=== PATIENT | male | born 1930 | race Caucasian/White ===

== ENCOUNTER 2017-05-01 10:47 | Inpatient (IN) | payer OTHER ==
[~2017-05-01] VITALS: Ht 175.3 cm; Wt 81.6 kg
[~2017-05-01 10:47] MED LIST: ATOR10TA69 PO; SOLI10TA PO; TAMS-11 PO
[2017-05-01] MEDS ORDERED: NITROGLYCERIN OINT 1GM/INCH UDPKT TD STA (11:15)
[2017-05-01] MEDS ORDERED: FUROSEMIDE 40MG/4ML VIAL IV STA (11:15)
[2017-05-01] MEDS ORDERED: ASPIRIN 81MG TABLET PO STA (11:15)
[2017-05-01 12:03] LABS: BASOPHILS % 0.4 % (0.0-2.0); EOSINOPHILS % 0.7 % (0.0-5.0); HEMATOCRIT. 34.8 % (42.0-52.0); HEMOGLOBIN. 11.7 g/dL (14.0-18.0); LYMPHOCYTES % 12.2 % (20.0-50.0); MEAN CORPUSCULAR HEMOGLOBIN 30.1 pg (28.0-32.0); MEAN CORPUSCULAR VOLUME 89.6 fL (80.0-94.0); MEAN PLATELET VOLUME 9.6 fl (7.4-10.4); MONOCYTES % 10.9 % (2.0-8.0); NEUTROPHILS % 75.8 % (40.0-76.0); PLATELET 142 x1000/uL (130-400); RED BLOOD CELL COUNT 3.88 mill/uL (4.7-6.1); RED CELL DISTRIBUTION WIDTH 14.9 % (11.6-14.6)
[2017-05-01 12:07] LABS: CLARITY URINE CLEAR (CLEAR); COLOR URINE YELLOW (YELLOW); GLUCOSE URINE NEGATIVE (NEGATIVE); KETONES URINE NEGATIVE (NEGATIVE); LEUKOCYTE ESTERASE URINE NEGATIVE (NEGATIVE); NITRITE URINE NEGATIVE (NEGATIVE); OCCULT BLOOD URINE TRACE (NEGATIVE); PH URINE 5.5 (4.5-8.0); PROTEIN URINE NEGATIVE (NEGATIVE); UROBILINOGEN URINE 0.2 E.U./dL (0.2-1.0)
[2017-05-01 12:10] LABS: INR 1.1; PARTIAL THROMBOPLASTIN TIME 29.4 sec (23.4-31.0); PROTHROMBIN TIME 11.7 sec (9.4-11.6)
[2017-05-01 12:11] LABS: CHLORIDE 94 mEq/L (98-107)
[2017-05-01 12:15] LABS: CARBON DIOXIDE 26 mEq/L (21-32)
[2017-05-01 12:19] LABS: TROPONIN I 0.05 ng/mL (0.00-0.04)
[2017-05-01] MEDS ORDERED: MORPHINE SULFATE 2 MG/ML CPJ (NOT FOR IM USE) IV PRN (15:45)
[2017-05-01] MEDS ORDERED: DOCUSATE SODIUM 100MG CAPSULE PO PRN (15:45)
[2017-05-01] MEDS ORDERED: ONDANSETRON HCL 4MG/2ML VIAL IV PRN (15:45)
[2017-05-01] MEDS ORDERED: IPRATROPIUM/ALBUTEROL 0.5-3(2.5)MG/3ML NEB INH PRN (15:45)
[2017-05-01] MEDS ORDERED: ACETAMINOPHEN 325MG TABLET PO PRN (15:45)
[2017-05-01] MEDS ORDERED: HYDROCODONE/ACETAMINOPHEN 5/325MG TABLET PO PRN (15:45)
[2017-05-01] MEDS ORDERED: CLONIDINE 0.1MG TABLET PO PRN (15:45)
[2017-05-01] MEDS: ATORVASTATIN CALCIUM 20MG TABLET PO SCH (21:51)
[2017-05-01 22:00] VITALS: BP 131/72
[2017-05-01 22:14] VITALS: BP 131/72
[2017-05-02] VITALS: BP 115/66
[2017-05-02 04:00] VITALS: BP 129/79
[2017-05-02 06:55] LABS: BASOPHILS % 0.5 % (0.0-2.0); HEMATOCRIT. 37.3 % (42.0-52.0); HEMOGLOBIN. 12.6 g/dL (14.0-18.0); MEAN CORPUSCULAR HEMOGLOBIN 30.2 pg (28.0-32.0); MEAN CORPUSCULAR VOLUME 89.7 fL (80.0-94.0); MEAN PLATELET VOLUME 9.9 fl (7.4-10.4); MONOCYTES % 10.5 % (2.0-8.0); PLATELET 154 x1000/uL (130-400); RED BLOOD CELL COUNT 4.16 mill/uL (4.7-6.1); RED CELL DISTRIBUTION WIDTH 15.1 % (11.6-14.6)
[2017-05-02 08:00] VITALS: BP 130/72
[2017-05-02 08:13] LABS: CARBON DIOXIDE 25 mEq/L (21-32); CHLORIDE 94 mEq/L (98-107)
[2017-05-02 08:21] LABS: HDL CHOLESTEROL 51 mg/dL (40-59); LDL CHOLESTEROL 63 mg/dL (5-100); TROPONIN I 0.04 ng/mL (0.00-0.04)
[2017-05-02] MEDS: TAMSULOSIN HCL 0.4MG SR CAPSULE PO SCH (09:30)
[2017-05-02] MEDS: ASPIRIN 81MG EC TABLET PO SCH (09:31)
[2017-05-02] MEDS: FUROSEMIDE 40MG/4ML VIAL IVP SCH (09:31)
[2017-05-02] MEDS: ENOXAPARIN 40MG/0.4ML SYR SUBCUT SCH (09:31)
[2017-05-02 12:00] VITALS: BP 113/69
[2017-05-02] MEDS ORDERED: MAGNESIUM/ALUMINUM HYDROXIDE/SIMETHICONE 30ML UDC PO NR (13:15)
[2017-05-02] MEDS ORDERED: PANTOPRAZOLE SODIUM 40 MG/VIAL IV ONE (13:15)
[2017-05-02] MEDS: PANTOPRAZOLE 40MG DR TABLET PO SCH (14:28)
[2017-05-02 16:00] VITALS: BP 102/57
[2017-05-02] MEDS ORDERED: MAGNESIUM/ALUMINUM HYDROXIDE/SIMETHICONE 30ML UDC PO PRN (18:00)
[2017-05-02 20:13] VITALS: BP 123/89
[2017-05-02] MEDS: ATORVASTATIN CALCIUM 20MG TABLET PO SCH (21:08)
[2017-05-03 04:00] VITALS: BP 140/66
[2017-05-03 06:59] LABS: HEMATOCRIT 37.3 % (42.0-52.0); HEMOGLOBIN 12.7 g/dL (14.0-18.0); MEAN CORPUSCULAR HEMOGLOBIN 30.6 pg (28.0-32.0); PLATELET 159 x1000/uL (130-400); RED BLOOD CELL COUNT 4.14 mill/uL (4.7-6.1); RED CELL DISTRIBUTION WIDTH 14.7 % (11.6-14.6)
[2017-05-03 07:54] LABS: CARBON DIOXIDE 28 mEq/L (21-32); CHLORIDE 88 mEq/L (98-107)
[2017-05-03 08:00] VITALS: BP 106/63
[2017-05-03] MEDS: FUROSEMIDE 40MG/4ML VIAL IVP SCH (08:56)
[2017-05-03] MEDS: PANTOPRAZOLE 40MG DR TABLET PO SCH (08:56)
[2017-05-03] MEDS: ASPIRIN 81MG EC TABLET PO SCH (08:56)
[2017-05-03] MEDS: TAMSULOSIN HCL 0.4MG SR CAPSULE PO SCH (08:56)
[2017-05-03] MEDS: ENOXAPARIN 40MG/0.4ML SYR SUBCUT SCH (08:57)
[2017-05-03 13:06] VITALS: BP 107/56
== END 2017-05-03 15:18 | disposition home or self-care (01) | DRG 291 ==
LOC: EDBEDREQTM 14:38 → EDBEDREQ 14:38 → ER 15:33 → 7WST 15:36 → ENRESERV 19:33
PROVIDERS: ADMIT Internal Medicine
DX: I11.0 Hypertensive heart disease with heart failure (principal); J96.00 Acute respiratory failure, unspecified whether with hypoxia or hypercapnia; E87.1 Hypo-osmolality and hyponatremia; E44.1 Mild protein-calorie malnutrition; I24.9 Acute ischemic heart disease, unspecified; I49.5 Sick sinus syndrome; J44.9 Chronic obstructive pulmonary disease, unspecified; I50.23 Acute on chronic systolic (congestive) heart failure; I73.9 Peripheral vascular disease, unspecified; E78.00 Pure hypercholesterolemia, unspecified; Z96.659 Presence of unspecified artificial knee joint; E78.5 Hyperlipidemia, unspecified; I25.10 Atherosclerotic heart disease of native coronary artery without angina pectoris; D64.9 Anemia, unspecified; K21.9 Gastro-esophageal reflux disease without esophagitis; N40.0 Benign prostatic hyperplasia without lower urinary tract symptoms; Z86.79 Personal history of other diseases of the circulatory system; Z87.891 Personal history of nicotine dependence; Z90.49 Acquired absence of other specified parts of digestive tract; Z95.0 Presence of cardiac pacemaker; Z68.26 Body mass index [BMI] 26.0-26.9, adult; Z79.899 Other long term (current) drug therapy; I25.2 Old myocardial infarction
CPT/HCPCS: 36415; 71010; 80048; 80053; 80061; 81001; 83690; 83735; 83880; 84484; 85025; 85027; 85610; 85730; 93005; 93306; 93970; 96374; 99285; J1650; J1940